=== PATIENT | female | born 1970 | race Caucasian/White ===

== ENCOUNTER 2019-01-31 17:29 | Emergency (ER) | payer BC, SELFPAY ==
[2019-01-31 17:30] VITALS: BP 127/74; PULSE 74; RESP 16; TEMP 36.8; O2SAT 97; BMI 22.9
--- NOTE | 2019-01-31 18:39 | ED.VIS.UPPEX ---
History of Present Illness Chief Complaint: Upper Extremity Injury Informant: Patient Occurred: Weeks - 2 Mechanism/Context: Work Related Context: Sudden Onset - see below Timing: Continuous Quality of Pain: Aching Location: right wrist Current Severity: Moderate Maximum Severity: Moderate Worsened by: movement Relieved by: rest Associated Symptoms: Parasthesia - in thumb and first few fingers. Negative for: Weakness, Loss of Funtion Narrative: Patient states she was at work and using some type of tool and doing a clamping motion, as if she was using a pair of pliers and squeezing tightly. While doing this, she felt an acute snap in her right wrist followed by pain and a swollen nodule that has been there since. She is also developed tingling in her fingertips. RHD. Past Medical History - Allergies and Home Meds Allergies/Adverse Reactions: Allergies No Known Allergies Allergy (Verified 01/31/19 17:33) Primary Care Physician: NOT,DEFINED [NON-STAFF] - Past Medical History: None Smoking Status: Current every day smoker Drugs: None Review of Systems General: Denies: Chills, Fever Musculoskeletal: Reports: Swelling - focal right wrist, Extremity Pain. Denies: Neck pain, Back pain Skin: Denies: Rash, Abscess, Abrasions, Wounds Neurological: Reports: Parasthesia. Denies: Headache, Weakness Physical Exam Vital Signs/Narrative: Vital Signs Temp Pulse Resp BP Pulse Ox 01/31/19 17:30 98.3 F 74 16 127/74 H 97 General: Well nourished, Well developed, - - well-appearing, nad Head: Normocephalic, Atraumatic Extremeties: Positive Tinel's at the right carpal tunnel/median nerve. Swollen tender nodule at the volar aspect of the radial aspect of the right wrist. Also mildly tender at the distal radius itself. She has full range of motion of the wrist with the most pain when she is doing extension and stretching the affected area. All extensors, opposers, FDS, FDP intact. Skin: Normal color, No rash, No Trauma Neurological: Alert, Oriented x3, Cranial nerves II-XII grossly intact, Normal Strength, Normal Gait, Parasthesia - in median nerve distribution R hand Psychological: Normal affect, Normal Mood Diagnostic/Tx/Re-eval Clinical Impression(s) from Imaging Studies Wrist X-Ray 01/31/19 18:50 IMPRESSION: No fracture or dislocation. Electronically Signed: Efe Hodgson, at 19:02 EDT Tel , Service support , - Medical Decision Making X-rays are unremarkable. This is probably a soft tissue problem that may be causing secondary carpal tunnel syndrome as a result of swelling and inflammation. She will need orthopedic follow-up. Referral given as well as a Velcro wrist splint. ED Disposition - Plan for ED Patient: Disposition: Home or Assisted Living Diagnosis: Right wrist injury, Carpal tunnel syndrome, right Instructions: Carpal Tunnel, Wrist Sprain, WRIST SPLINT, Velcro Referrals: Belgica Buitrago DO [STAFF PHYSICIAN] - As soon as possible (Call for appointment) Additional Instructions: Ice to affected area, ibuprofen as needed for pain
--- NOTE | 2019-01-31 18:50 | RAD_ITS ---
STUDY: X-RAY - RIGHT WRIST REASON FOR EXAM: Female, 48 years old. Pain TECHNIQUE: 3 view(s) of the wrist were obtained. COMPARISON: None. FINDINGS: There is no evidence of fracture or dislocation. There are no significant degenerative changes. There are no radiodense foreign bodies. RAD/Wrist min 3 Views IMPRESSION: No fracture or dislocation. Electronically Signed: Efe Hodgson, at 19:02 EDT Tel , Service support ,
== END 2019-01-31 20:08 | disposition home or self-care (01) ==
PROVIDERS: Emergency Provider Emergency Medicine
DX: G56.01 Carpal tunnel syndrome, right upper limb (principal); S69.91XA Unspecified injury of right wrist, hand and finger(s), initial encounter; F17.200 Nicotine dependence, unspecified, uncomplicated; X50.3XXA Overexertion from repetitive movements, initial encounter; Y93.89 Activity, other specified; Y92.89 Other specified places as the place of occurrence of the external cause; Y99.0 Civilian activity done for income or pay
CPT/HCPCS: 73110; 99283

== ENCOUNTER 2019-08-09 16:14 | Emergency (ER) | payer BC, SELFPAY ==
[2019-08-09 16:16] VITALS: BP 163/96; PULSE 64; RESP 18; TEMP 36.6; O2SAT 100; BMI 25.1
[2019-08-09 16:30] VITALS: O2SAT 98
--- NOTE | 2019-08-09 16:30 | EKG12_ITS ---
Test Reason : Blood Pressure : / mmHG Vent. Rate : 058 BPM Atrial Rate : 058 BPM P-R Int : 142 ms QRS Dur : 084 ms QT Int : 420 ms P-R-T Axes : 025 059 042 degrees QTc Int : 412 ms Sinus bradycardia Otherwise normal ECG Confirmed by LAW COLEY, ELKIN ([id number]), deliverer pharmacy JASWANT DE JESUS ([id number]) on 08/13/2019 2:36:17 PM Referred By: NADIR Confirmed By:BUCK FOY MD
--- NOTE | 2019-08-09 16:31 | RAD_ITS ---
STUDY: X-RAY CHEST REASON FOR EXAM: Female, 48 years old. pain over left chest,radiates under breast. pt is a smoker but sob has been increased TECHNIQUE: PA and lateral views of the chest. COMPARISON: None. FINDINGS: The lungs are clear and expanded. There is no demonstrated pleural abnormality. Normal size heart. Normal mediastinum and miguel. Normal visualized pulmonary arteries. Normal visualized aortic arch and descending thoracic aorta. Normal visualized thoracic spine. Normal visualized ribs, clavicles, and shoulders. There is no demonstrated abnormality of the visualized soft tissue structures of the upper abdomen. RAD/Chest PA and Lateral IMPRESSION: Normal x-ray examination of the chest. Electronically Signed: Ricardo Husain MD at 17:01 EST Tel , Service support ,
--- NOTE | 2019-08-09 16:32 | ED.DCSUM_ITS ---
History of Present Illness Chief Complaint: Chest Pain Informant: Patient Onset: Yesterday Activity at onset: Rest Timing: Intermittent, Lasts - minutes Location: Substernal, Left Chest - w/ radiation to posterior left ulysses ulder/scapular area; no other radiation Current Severity: Mild Maximum Severity: Moderate Worsened By: Nothing - in particular. Not Worsened By: Exertion, Movement of Arm, Movement of Torso, Eating, Breathing, Coughing Relieved By: Nothing - in particular Associated Symptoms: Nausea, Dyspnea. Negative for: Vomiting, Diaphoresis, Cough, Fever, Lightheadedness, Palpitations Narrative: Patient has been performing light exertion and has not noticed the pain when she is doing that. Only when she is sitting at work, resting. No recent leg pain or swelling. No history of DVT or PE. Discomfort is nonpleuritic. Prior Similar Symptoms: No CVD Risk Factors: Smoking. Negative for: Hypertension, Diabetes, Hypercholesterolemia, Family History 1' </=55 PE Risk Factors: Negative for: Recent Travel/Surgery, Recenet Immobilization, Prior DVT or PE, Cancer, OCP + Smoking + >/=35 Past Medical History - Allergies and Home Meds Allergies/Adverse Reactions: Allergies guaifenesin [From Mucinex] Allergy (Verified 08/09/19 16:20) Hives Primary Care Physician: Care Physician,No Primary [Primary Care Provider] - Past Medical History: None Smoking Status: Current every day smoker Drugs: None Review of Systems General: Denies: Chills, Fever, Sweats Eyes: Denies: Visual changes - bilaterally, Diplopia ENT: Denies: Rhinorrhea, Sore throat Cardiovascular: Reports: Chest pain. Denies: Palpitations Respiratory: Reports: Dyspnea. Denies: Cough, Dyspnea on exertion, Orthopnea Gastrointestinal: Reports: Nausea. Denies: Abdominal pain, Vomiting, Diarrhea, Melena, Hematochezia Genitourinary: Denies: Dysuria, Hematuria, Frequency Musculoskeletal: Reports: Back pain. Denies: Neck pain, Swelling, Extremity Pain Skin: Denies: Rash, Wounds Neurological: Denies: Headache, Weakness, Numbness Physical Exam Vital Signs/Narrative: Vital Signs Temp Pulse Resp BP Pulse Ox 08/09/19 16:16 97.9 F 64 18 163/96 H 100 Inital Vital Signs reviewed: Yes General: Well nourished, Well developed, No Acute Distress Head: Normocephalic, Atraumatic Eyes: Perrl, EOMI ENT: Moist mucous membranes, No rhinorrhea Neck: Supple, Nontender. Negative for: No JVD Cardiovascular: Regular rate, Regular rhythm, No murmurs, Normal S1, Normal S2. Negative for: Tachycardia Respiratory: No distress, CTA bilaterally, Chest tenderness - left lower anterior ribcage, beneath left breast; reproduces pain, but no worse w/ moving arm/torso around Abdomen: Soft, Nontender, Nondistended, Normal bowel sounds Back: Nontender, Normal Inspection Extremities: Nontender, No edema. Negative for: Calf Tenderness Skin: Normal color, No rash, No Trauma Neurological: Alert, Oriented x3, Cranial nerves II-XII grossly intact, Normal Strength, Normal Sensation, Normal Gait Psychological: Normal affect, Normal Mood Diagnostic/Tx/Re-eval Impressions Chest X-Ray 08/09/19 16:31 IMPRESSION: Normal x-ray examination of the chest. Electronically Signed: Ricardo Husain MD at 17:01 EST Tel , Service support , 08/09/19 16:31 Chest PA and Lateral [RAD] Stat Laboratory Results 08/09/19 08/09/19 16:15 16:15 WBC 10.1 RBC 4.62 Hgb 14.6 Hct 44.0 MCV 95.2 MCH 31.6 MCHC 33.2 RDW Std Deviation 44.1 H RDW Coeff of Radha 12.6 Plt Count 308 MPV 9.5 Immature Gran % (Auto) 0.300 Neut % (Auto) 47.8 Lymph % (Auto) 43.4 H Calhoun % (Auto) 5.1 Eos % (Auto) 3.0 Baso % (Auto) 0.4 Absolute Neuts (auto) 4.8 Absolute Lymphs (auto) 4.37 Nucleated RBC % 0 Sodium 142 Potassium 3.6 Chloride 110 H Carbon Dioxide 28.0 Anion Gap 4 L BUN 8 Creatinine 0.80 Estim Creat Clear Calc 84.87 Est GFR (MDRD) Af Amer 98 Est GFR (MDRD) Non-Af 81 BUN/Creatinine Ratio 10.1 Glucose 100 Calcium 9.4 Troponin I < 0.015 - Rhythm Strip Rhythm Strip: Sinus Rhythm Rate: 58 Ectopy: None - EKG Initial EKG Interpretation: Sinus Rhythm, No Acute Injury Pattern - normal EKG Prior: No Prior Treatment: GI Cocktail AZ Risk: No Positive AZ Elements Score: 0 - Medical Decision Making Patient is improved after a GI cocktail. Her work-up is unremarkable and she is low risk for coronary event. At this time I feel she is safe to follow-up as an outpatient. She has no PCP. She will be referred. Advised to take a PPI daily for the next 2 weeks in the meantime, and encouraged to return for any worsening issues. She is comfortable with that plan. ED Disposition - Plan for ED Patient: Disposition: Home or Assisted Living Diagnosis: Intermittent left-sided chest pain Instructions: CHEST PAIN, Uncertain Cause Referrals: Casi Francis MD [STAFF PHYSICIAN] - 1 Week if not improving
[2019-08-09] MEDS: Mag Hydrox/Al Hydrox/Simeth 30 ML UDC PO (16:40)
[2019-08-09 16:45] LABS: Absolute Lymphocyte Count 4.37 X10^3/uL (0.83-4.51); Absolute Neutrophil Count 4.8 X10^3/uL (2.0-7.7); Basophil# 0.04 X10^3/uL; Basophil% 0.4 % (0-1); Hemoglobin 14.6 g/dL (12.0-15.0); Lymphocyte # 4.37 X10^3/ul (4.0); Lymphocyte % 43.4 % (19-41); Mean Corp Hgb Conc 33.2 g/dL (32-36); Mean Corpuscular Hgb 31.6 pg (27.0-32.0); Mean Corpuscular Volume 95.2 fL (81-99); Mean Platelet Vol. 9.5 fl (6.2-12.0); Monocyte# 0.51 X10^3/uL; Monocyte% 5.1 % (0-10); NRBC Flagged by Analyzer 0 % (0-5); Neutrophil # 4.82 X10^3/uL (2.7-7.7); Neutrophil % 47.8 % (47-70); Platelet Count 308 K/mm3 (150-450); RBC Distribution Width CV 12.6 % (11.6-14.6); RBC Distribution Width SD 44.1 fl (35.1-43.9); Red Blood Count 4.62 M/mm3 (4.2-5.4); White Blood Count 10.1 K/mm3 (4.4-11.0)
[2019-08-09 16:59] LABS: Anion Gap 4 (5-15); BUN 8 mg/dL (7-18); BUN/Creat Ratio 10.1 RATIO (10-20); Calcium,Total 9.4 mg/dL (8.5-10.1); Chloride 110 mmol/L (98-107); EST Glomerular Filtration Rate 81 mL/min (>60); Est Glom Filt Rate - Afr Amer 98 mL/min (>60); Estimated Creatinine Clearance 84.87 ml/min; Glucose 100 mg/dL (74-106); Potassium 3.6 mmol/L (3.5-5.1); Sodium Level 142 mmol/L (136-145)
[2019-08-09 17:19] VITALS: BP 148/89; PULSE 58; RESP 19; O2SAT 98
[2019-08-09 17:50] VITALS: BP 138/80; PULSE 61; RESP 12; O2SAT 98
== END 2019-08-09 17:51 | disposition home or self-care (01) ==
PROVIDERS: Emergency Provider Emergency Medicine
DX: R07.89 Other chest pain (principal); F17.200 Nicotine dependence, unspecified, uncomplicated
CPT/HCPCS: 71046; 80048; 84484; 85025; 93005; 99284; A4216

== ENCOUNTER 2020-03-30 15:27 | Emergency (ER) | payer BC, SELFPAY ==
[2020-03-30 15:28] VITALS: BP 139/92; PULSE 101; RESP 18; TEMP 36.8; O2SAT 100; BMI 23.6
--- NOTE | 2020-03-30 15:54 | RAD_ITS ---
STUDY: X-RAY CHEST REASON FOR EXAM: Female, 49 years old. Chest pain radiating to back worsening today. TECHNIQUE: Frontal view of the chest COMPARISON: 09 August 2019 FINDINGS: The lungs are clear and expanded. There is no demonstrated pleural abnormality. Normal size heart. Normal mediastinum and miguel. Normal visualized pulmonary arteries. Normal visualized aortic arch and descending thoracic aorta. Normal visualized thoracic spine. Normal visualized ribs, clavicles, and shoulders. There is no demonstrated abnormality of the visualized soft tissue structures of the upper abdomen. RAD/Chest 1 View (Portable) IMPRESSION: Normal x-ray examination of the chest. Electronically Signed: Freedom Clarke, at 16:57 EDT Tel , Service support ,
--- NOTE | 2020-03-30 15:54 | EKG12_ITS ---
Test Reason : ABDOMINAL PAIN Blood Pressure : / mmHG Vent. Rate : 062 BPM Atrial Rate : 062 BPM P-R Int : 168 ms QRS Dur : 076 ms QT Int : 384 ms P-R-T Axes : 068 059 053 degrees QTc Int : 389 ms Normal sinus rhythm Normal ECG Confirmed by ATTILA COLEY, PETE ([id number]), proposal editor LUAN BARRERA ([id number]) on 04/01/2020 12:51:33 PM Referred By: KALANI/MEDHAT Confirmed By:PETE AIEKN MD
--- NOTE | 2020-03-30 15:55 | ED.VIS.GEN ---
History of Present Illness Chief Complaint: Headache Detail of Chief Complaint: Head congestion, right lower rib pain Informant: Patient Onset: Weeks - 1 week Current Severity: Mild Maximum Severity: Moderate Narrative: Patient presents secondary to head and chest congestion with cough. Symptoms been ongoing for the past 1 week. She also complains of a one-week history of sharp pain in the right lower ribs that is worsened over the past 2 or 3 days. She denies fever or chills. Past Medical History - Allergies and Home Meds Allergies/Adverse Reactions: Allergies guaifenesin [From Mucinex] Allergy (Verified 03/30/20 15:28) Hives Primary Care Physician: Care Physician,No Primary [Primary Care Provider] - Past Medical History: None Surgical History: cholecystectomy Smoking Status: Current every day smoker Review of Systems General: Denies: Chills, Fever Eyes: Denies: Visual changes - bilaterally ENT: Reports: - - Congestion. Denies: Bilateral ear pain Cardiovascular: Reports: Chest pain Respiratory: Reports: Cough Gastrointestinal: Denies: Abdominal pain, Vomiting, Diarrhea Musculoskeletal: Denies: Swelling, Extremity Pain Skin: Denies: Rash Neurological: Reports: Headache Hematologic: Denies: Easy bruising, Easy bleeding Allergy: Denies: Uticaria Physical Exam Vital Signs/Narrative: Vital Signs Temp Pulse Resp BP Pulse Ox 03/30/20 15:28 98.3 F 101 H 18 139/92 H 100 Inital Vital Signs reviewed: Yes General: Well nourished, Well developed Head: Normocephalic ENT: Moist mucous membranes Neck: Supple Cardiovascular: Regular rate, Regular rhythm Respiratory: No distress, CTA bilaterally, Chest tenderness - Mild right lower rib tenderness palpation. No crepitus. Abdomen: Soft, Nontender Skin: Normal color Neurological: Alert, Oriented x3 Psychological: Normal affect Diagnostic/Tx/Re-eval Impressions Chest X-Ray 03/30/20 15:54 IMPRESSION: Normal x-ray examination of the chest. Electronically Signed: Freedom Clarke, at 16:57 EDT Tel , Service support , 03/30/20 15:54 Chest 1 View (Portable) [RAD] Stat Laboratory Results 03/30/20 03/30/20 03/30/20 16:20 16:20 16:20 WBC 7.6 RBC 4.46 Hgb 14.4 Hct 43.3 MCV 97.1 MCH 32.3 H MCHC 33.3 RDW Std Deviation 45.7 H RDW Coeff of Radha 12.8 Plt Count 275 MPV 9.9 Immature Gran % (Auto) 0.300 Neut % (Auto) 62.3 Lymph % (Auto) 27.4 Calvert % (Auto) 7.1 Eos % (Auto) 2.5 Baso % (Auto) 0.4 Absolute Neuts (auto) 4.7 Absolute Lymphs (auto) 2.08 Nucleated RBC % 0 D-Dimer Quant (PE/DVT) 0.29 Sodium 143 Potassium 3.4 L Chloride 113 H Carbon Dioxide 25.0 Anion Gap 5 BUN 7 Creatinine 0.70 Estim Creat Clear Calc 95.91 Est GFR (MDRD) Af Amer 114 Est GFR (MDRD) Non-Af 94 BUN/Creatinine Ratio 10.1 Glucose 94 Calcium 9.1 Troponin I < 0.015 - EKG Initial EKG Interpretation: Sinus Rhythm - Sinus at 62 with no acute ischemia. - Medical Decision Making Work-up was initiated secondary to the sharp pain in the right lower ribs. No evidence of cardiac disease or PE on work-up. I advised her I believe her symptoms are all viral in nature and will simply need to run their course. I believe she likely has some costochondritis secondary to her viral infection. She will be given prednisone to help with this. ED Disposition - Plan for ED Patient: Disposition: Home or Assisted Living Diagnosis: Viral URI, Costochondritis Instructions: ED URI Viral, ED CHEST PAIN [place] Prescriptions: Prednisone [Deltasone] 40 mg PO DAILY #10 tab Transmission Status: Pending to [id number] Referrals: Fast,Jolly, DO [NON-STAFF] - As Needed
[2020-03-30 16:21] VITALS: BP 137/80; PULSE 61; RESP 16; O2SAT 99
[2020-03-30 16:39] LABS: Absolute Lymphocyte Count 2.08 X10^3/uL (0.83-4.51); Absolute Neutrophil Count 4.7 X10^3/uL (2.0-7.7); Basophil# 0.03 X10^3/uL; Basophil% 0.4 % (0-1); Eosinophil# 0.19 X10^3/uL; Eosinophils% 2.5 % (0-5); Hematocrit 43.3 % (37-47); Hemoglobin 14.4 g/dL (12.0-15.0); Lymphocyte # 2.08 X10^3/ul (4.0); Lymphocyte % 27.4 % (19-41); Mean Corp Hgb Conc 33.3 g/dL (32-36); Mean Corpuscular Hgb 32.3 pg (27.0-32.0); Mean Corpuscular Volume 97.1 fL (81-99); Mean Platelet Vol. 9.9 fl (6.2-12.0); Monocyte# 0.54 X10^3/uL; Monocyte% 7.1 % (0-10); NRBC Flagged by Analyzer 0 % (0-5); Neutrophil # 4.74 X10^3/uL (2.7-7.7); Neutrophil % 62.3 % (47-70); Platelet Count 275 K/mm3 (150-450); RBC Distribution Width CV 12.8 % (11.6-14.6); RBC Distribution Width SD 45.7 fl (35.1-43.9); Red Blood Count 4.46 M/mm3 (4.2-5.4); White Blood Count 7.6 K/mm3 (4.4-11.0)
[2020-03-30 16:51] LABS: D-Dimer Quantitative (DVT/PE) 0.29 FEU/ug/m (0.27-0.49)
[2020-03-30 17:00] LABS: Anion Gap 5 (5-15); BUN 7 mg/dL (7-18); BUN/Creat Ratio 10.1 RATIO (10-20); Calcium,Total 9.1 mg/dL (8.5-10.1); Chloride 113 mmol/L (98-107); EST Glomerular Filtration Rate 94 mL/min (>60); Est Glom Filt Rate - Afr Amer 114 mL/min (>60); Estimated Creatinine Clearance 95.91 ml/min; Glucose 94 mg/dL (74-106); Potassium 3.4 mmol/L (3.5-5.1); Sodium Level 143 mmol/L (136-145)
[2020-03-30 17:21] VITALS: BP 135/94; PULSE 68; RESP 18; TEMP 36.6; O2SAT 99
== END 2020-03-30 17:30 | disposition home or self-care (01) ==
PROVIDERS: Emergency Provider Emergency Medicine
DX: M94.0 Chondrocostal junction syndrome [Tietze] (principal); J06.9 Acute upper respiratory infection, unspecified; F17.200 Nicotine dependence, unspecified, uncomplicated
CPT/HCPCS: 71045; 80048; 84484; 85025; 85379; 93005; 99284; A4216

== ENCOUNTER → 2020-04-07 | Outpatient (CLI) | payer BC, SELFPAY ==
[2020-03-30 15:28] VITALS: BMI 23.6
== END | disposition home or self-care (01) ==
LOC: MTDU 04-08 14:41
PROVIDERS: Referring Provider Nurse Practitioner Family; Visit Provider Nurse Practitioner Family
DX: R05 Cough (principal); Z20.828 Contact with and (suspected) exposure to other viral communicable diseases
CPT/HCPCS: 87635; C9803; U0003

== ENCOUNTER 2025-04-20 08:41 | Emergency (ER) | payer MEDICAID, SELFPAY ==
[2025-04-20 08:42] VITALS: BP 151/98; PULSE 90; RESP 16; TEMP 36.8; O2SAT 99; BMI 25.3
--- NOTE | 2025-04-20 09:05 | RAD_ITS ---
PROCEDURE: RAD/Shoulder min 2 Views
--- NOTE | 2025-04-20 09:10 | EX.ED.UPPERE ---
HPI History of Present Illness HPI Narrative: 54-year-old female no significant past medical history. Complaining of atraumatic right shoulder and neck discomfort for about a month. She went to an urgent care today. They sent her to the emergency department. She denies any fall or injury. No redness or swelling. No fever. She has never had surgery to her right shoulder. She is right-hand dominant. She said to get stiff there is pain in her shoulder aching going down her right. Mild tingling in her right thumb. Chief Complaint: Upper Extremity Injury Occured/Mechanism Mechanism/Context: No injury and No blunt trauma Onset/Context/Timing Onset: Month(s) (1 month.) Context: Gradual Onset Timing: Continuous Quality of Pain: Dull and Aching Current Severity: Moderate Maximum Severity: Moderate Associated Symptoms Associated Symptoms: Negative for Parasthesia, Weakness or Loss of Funtion Narrative Narrative: 54-year-old [id number] female complaining of right shoulder and neck pain for about a month. No fall injury or trauma. Worse with movement. Prior similar symptoms: Yes Recent Illness/Hospitalization: No PFSH PFSH Medical History no medical history no medical history Home Medications ?Medication ?Instructions ?Recorded ?Last Taken ?Type melatonin 5 mg-pyridoxine (vitamin 1 tab PO DAILY 08/09/19 Unknown History B6) 1 mg tablet multivitamin 1 ea PO DAILY 08/09/19 Unknown History prednisone 20 mg tablet 40 mg (2 x 20 mg) PO DAILY #10 tabs 03/30/20 Unknown Rx metaxalone 800 mg tablet 800 mg PO TID 7 days #21 tabs 04/20/25 Unknown Rx Allergy/AdvReac Type Severity Reaction Status Date / Time guaifenesin (From Mucinex) Allergy Hives Verified 04/20/25 08:42 Social History Smoking Status: Unknown if ever smoked ROS ROS ED ROS Narrative Denies recent illness. No fever. Constitutional Constitutional ED: Denies chills or fever(s) Eyes Eyes: Denies blurry vision ENT ENT ED: Denies ear pain Cardiovascular Cardiovascular: Denies chest pain Respiratory/Chest Respiratory/Chest: Denies cough or dyspnea Gastrointestinal Gastrointestinal: Denies abdominal pain, nausea or vomiting Genitourinary Genitourinary ED: Denies dysuria or hematuria Musculoskeletal Musculoskeletal: Reports neck pain; Denies back pain or myalgias Integumentary Denies abscess or Abrasions Neurologic Neurologic: Denies headache(s) Psychiatric Psychiatric: Denies anxiety Endocrine Endocrinology: Denies cold intolerance, heat intolerance, polydipsia, polyphagia or polyuria Hematologic/Lymphatic Hematologic/Lymphatic: Denies easy bleeding, easy bruising or lymphadenopathy Allergic/Immunologic Allergic/Immunologic ED: Denies mouth swelling, tongue swelling or urticaria EXAM Physical Exam Narrative Exam Narrative: Well-appearing middle-aged female. Vital signs are stable afebrile. No acute distress. H EENT exam pupils round react to light. Moist mucous membranes. Neck there is no reproducible neck tenderness. She does have tenderness to her posterior shoulder and Cervical soft tissue musculature. Back otherwise nontender. Lungs clear to auscultation bilaterally. Heart regular rhythm rate about 90 no murmur. Chest wall ribs nontender. Abdomen soft nontender. Moving all 4 extremities. Neurovascularly intact. Sonographer strength 5 out of 5 bilaterally. Full flexion extension of both wrist elbows and shoulders. She has minimal discomfort to the right shoulder is more pain with range of motion of the shoulder and the upper back musculature behind the right shoulder. There is no redness or warmth. There is no discoloration. There is no bruising. There is no bony deformity. She has full flexion extension internal/external rotation of the shoulder. She can lift her arm overhead. Normal flexion extension of the wrist and elbow. Normal radial pulse. Normal special investigation unit investigator strength. Normal sensation. Other extremities are unremarkable. Neurologically she is awake alert. Answering questions and following commands. Const Vital Signs: 04/20/25 08:42 Temperature 98.3 F Temperature Source Oral Pulse Rate 90 Respiratory Rate 16 Blood Pressure 151/98 H Blood Pressure Mean 115 Pulse Ox 99 Oxygen Delivery Method Room Air MDM MDM MDM Narrative Medical decision making narrative: Patient be given Motrin for pain. X-ray of her shoulder to be obtained. There is no signs of infection or gout I do not think she needs labs. I guess is primarily musculoskeletal shoulder pain and probably muscle spasm in her back. There may be a component of her neck with tingling in her right thumb. Repeat exam around 9:30 AM unchanged. Again no redness or warmth of the shoulder she and I went over her x-ray results. She will be treated with anti-inflammatories and Tylenol. Ice to the shoulder. Muscle relaxant for upper back and neck. And follow-up with orthopedics if not improving to consider a shoulder joint injection. Patient is comfortable with the plan and wants to go initially with this conservative approach. History & Record Review Discussion w/independent historian: Patient Radiography Diagnostic Testing: Right shoulder x-ray 4 views interpreted by myself and the radiologist. Shows no acute fracture nor dislocation. There is mild degenerative arthritis. No significant swelling or effusion seen. I did go over the x-ray with the patient. Discharge Plan Triage Chief Complaint: Upper Extremity Injury ED Provider: Hany Madrid Dx/Rx/DC Orders Clinical Impression: Acute pain of right shoulder, Osteoarthritis, Neck muscle spasm Instructions: ED Muscle Spasm, ED Osteoarthritis Prescriptions: New metaxalone 800 mg tablet 800 mg PO TID 7 Days Qty: 21 0RF No Action multivitamin 1 EACH tablet 1 ea PO DAILY melatonin-pyridoxine (vit B6) 1 EACH tablet 1 tab PO DAILY prednisone 20 MG tablet 40 mg PO DAILY Qty: 10 0RF Rx Instructions: With food Primary Care Provider: Care Physician,No Primary Referrals: Henri Sarah DO [Med Staff - Active Staff, Orthopedics] - 1 Week if not improving Care Physician,No Primary [Primary Care Provider, Medical] Activity Restrictions/Additional Instructions: Right shoulder pain secondary to arthritis. Ice to the shoulder to decrease pain and swelling. Motrin, Advil or ibuprofen like 600 mg 3 times a day to decrease pain and inflammation. Alternate with Tylenol. You also have some muscle spasm in the muscles of your neck and posterior shoulder. He will be given a prescription for Skelaxin which is a muscle relaxant. Take it 3 times a day. Usually by day 3 or 4 you will notice a difference. You can use warm compresses in the hot shower and massage on your neck and upper back. This should progressively get better if it does not follow-up with the orthopedic surgeon Dr. Sarah. He can reevaluate your shoulder and you when he can discuss shoulder joint injection if he feels it is necessary. Print Language: Ukrainian Disposition Disposition: Home, Self Care
[2025-04-20 09:43] VITALS: BP 130/97; PULSE 70; RESP 18; TEMP 36.6; O2SAT 98
== END 2025-04-20 09:53 | disposition home or self-care (01) ==
PROVIDERS: Emergency Provider Emergency Medicine; Visit Provider Emergency Medicine
DX: M19.011 Primary osteoarthritis, right shoulder (principal); M62.838 Other muscle spasm; R20.2 Paresthesia of skin; M25.511 Pain in right shoulder
CPT/HCPCS: 73030; 99282